=== PATIENT | male | born 1955 | race Hispanic/Latino ===

== ENCOUNTER 2023-01-27 16:17 | Emergency (ER) | payer BC ==
[~2023-01-27] VITALS: Ht 170.2 cm; Wt 87.1 kg
[2023-01-27 17:14] LABS: BASOPHILS % 0.6 % (0.0-1.0); EOSINOPHILS # (AUTO) 0.2 (0.0-0.4); EOSINOPHILS % 2.5 % (0.0-6.0); HEMATOCRIT 40.8 % (38.2-49.6); HEMOGLOBIN 14.1 g/dL (14.0-18.0); LYMPHOCYTES # (AUTO) 1.5 (1.0-3.2); MEAN CORPUSCULAR HEMOGLOBIN 30.9 pg (28-32); MEAN CORPUSCULAR HGB CONC 34.6 g/dL (31-35); MEAN CORPUSCULAR VOLUME 89.5 fL (81-99); MONOCYTES # (AUTO) 0.7 (0.2-0.8); MONOCYTES % 10.3 % (4.4-11.3); NEUTROPHILS # (AUTO) 4.1 (2.1-6.9); NEUTROPHILS % 63.3 % (38.7-80.0); PLATELET COUNT 234 x10e3/uL (140-360); RED BLOOD COUNT 4.56 x10e6/uL (4.3-5.7); RED CELL DISTRIBUTION WIDTH 11.9 % (11.7-14.4); WHITE BLOOD COUNT 6.49 x10e3/uL (4.8-10.8)
[2023-01-27 17:33] LABS: ALBUMIN 3.6 g/dL (3.5-5.0); ALBUMIN/GLOBULIN RATIO 0.9 (0.8-2.0); ANION GAP 12.1 mmol/L (8-16); CALCIUM 8.9 mg/dL (8.4-10.2); CREATININE, SERUM 0.83 mg/dL (0.72-1.25); POTASSIUM 4.1 mmol/L (3.5-5.1)
[2023-01-27 17:49] LABS: INR 0.94; PROTHROMBIN TIME 13.1 seconds (11.9-14.5)
[2023-01-27 17:50] LABS: PARTIAL THROMBOPLASTIN TIME 32.6 seconds (23.8-35.5)
[2023-01-27] MEDS ORDERED: IOPAMIDOL 370 MG/ML 100 ML INFUS..BTL INJ ONE (17:54)
[2023-01-27] MEDS ORDERED: HEPARIN 25,000 UNIT/D5W 250ML 25,000 UNIT in DEXTROSE 5% 250ML 250 ML IV SCH (20:00)
[2023-01-27] MEDS ORDERED: HEPARIN SOD (PORCINE) 5,000 UNIT/ML VIAL IV ONE (20:00)
[2023-01-27] MEDS ORDERED: HEPARIN 25,000 UNIT/D5W 250ML 1,300 UNIT in DEXTROSE 5% 250ML 250 ML IV SCH (20:15)
[2023-01-27] MEDS ORDERED: HEPARIN 25,000 UNIT/D5W 250ML 250 ML IV SCH (20:30)
[2023-01-27] MEDS ORDERED: HEPARIN 25,000 UNIT DRIP IV ONE (20:30)
[2023-01-27] MEDS ORDERED: HEPARIN SOD (PORCINE) 5,000 UNIT/ML VIAL ONE (20:31)
[2023-01-27 23:40] VITALS: O2SAT 96
[2023-01-28] MEDS ORDERED: NICOTINE 21 MG/EA PATCH TOP SCH (09:00)
== END 2023-01-27 23:55 | disposition other institution (70) ==
LOC: ER 17:06 → ERHOLD 20:08 → UNDOADMIN 20:08 → ER 23:55
DX: R07.89 Other chest pain (principal); I82.412 Acute embolism and thrombosis of left femoral vein; I82.432 Acute embolism and thrombosis of left popliteal vein; R91.8 Other nonspecific abnormal finding of lung field; I26.99 Other pulmonary embolism without acute cor pulmonale
CPT/HCPCS: 36415; 71260; 80053; 82550; 84484; 85025; 85379; 85610; 85730; 93005; 93970; 99284; J1644; Q9967